=== PATIENT | female | born 1960 | race Caucasian/White ===

== ENCOUNTER → 2017-05-10 | Outpatient (CLI) | payer MEDICAID ==
[~2017-05-10] MED LIST: ATOR40TA16 PO; BECL0.07 INH; CLOB0.0571 TOPICAL; CLON1TAB PO; ERGO2000 PO; FAMO1TAB37 PO; GABA400C5 PO; MIRA3350 PO; PRIM50TA5 PO; TIZA4CAP3 PO; VIST25CA PO; ZOFR4TAB PO
== END ==
LOC: HORT 13:18
PROVIDERS: ATTEND Emergency Medicine
DX: Z76.89 Persons encountering health services in other specified circumstances (principal)
CPT/HCPCS: L2114